=== PATIENT | female | born 1995 | race Caucasian/White ===

== ENCOUNTER 2016-10-30 15:08 | Emergency (ER) | payer OTHER, MEDICAID ==
[2016-10-30 16:05] VITALS: BP 125/76
--- NOTE | 2016-10-30 16:13 | ED ---
Ana Paula Bowers Emily, scribed for Leonel Maravilla MD on 10/30/16 at 1533 . Substance Abuse/Use - HPI Summary HPI Summary: This patient is a 20 year old F BIBA to [facility] with a chief complaint of heroin overdose this afternoon. Pt was found unresponsive to voice, but responsive to pain stimuli. Paramedics did not administer Narcan. Refuses blood draw and mental health evaluation. - History Of Current Complaint Chief Complaint: EDOverdose Stated Complaint: OVERDOSE Time Seen by Provider: 10/30/16 15:13 Hx Obtained From: Patient Ingestion History: Type/Name Of Drug - Heroin Overdose Characteristics: IV Timing Of Abuse: Binge Use Severity Initially: Moderate Severity Currently: Moderate - Allergies/Home Medications Allergies/Adverse Reactions: Allergies Allergy/AdvReac Type Severity Reaction Status Date / Time Amoxicillin [From Augmentin] Allergy Intermediate Hives Verified 01/18/16 18:07 Clavulanic Acid Allergy Intermediate Hives Verified 01/18/16 18:07 [From Augmentin] Penicillins [PCN] Allergy Intermediate Hives Verified 01/18/16 18:07 Phenazopyridine Allergy Intermediate Nausea And Verified 01/18/16 18:07 [From Pyridium] Vomiting Sulfa Antibiotics Allergy Intermediate Itching Verified 01/18/16 18:07 PMH/Surg Hx/FS Hx/Imm Hx Previously Healthy: No Endocrine/Hematology History: Denies: Hx Diabetes, Hx Thyroid Disease Cardiovascular History: Denies: Hx Hypertension Respiratory History: Denies: Hx Asthma, Hx Chronic Obstructive Pulmonary Disease (COPD) GI History: Denies: Hx Ulcer Neurological History: Denies: Hx Dementia Psychiatric History: Reports: Hx Depression, Hx Inpatient Treatment, Hx Community Mental Health Tx, Hx Suicide Attempt, Hx Substance Abuse - marijuana Denies: Hx Eating Disorder, Hx of Violent Episodes Against Others Infectious Disease History: No Infectious Disease History: Denies: Hx Clostridium Difficile, Hx Hepatitis, Hx Human Immunodeficiency Virus (HIV), Hx of Known/Suspected MRSA, Hx Shingles, Hx Tuberculosis, Hx Known/ Suspected VRE, Hx Known/Suspected VRSA, History Other Infectious Disease, Traveled Outside the [place] in Last 30 Days - Family History Known Family History: Negative: Renal Disease - Social History Occupation: Employed Full-time Lives: Alone Alcohol Use: Rare Substance Use Type: Reports: None, Heroin Substance Use Comment - Amount & Last Used: IVDU daily X2 months Smoking Status (MU): Former Smoker Type: Cigarettes Amount Used/How Often: 5 cigs per day Length of Time of Smoking/Using Tobacco: 2 months Have You Smoked in the Last Year: Yes Review of Systems Negative: Fever Neurological: Other - Heroin overdose All Other Systems Reviewed And Are Negative: Yes Physical Exam Triage Information Reviewed: Yes Vital Signs On Initial Exam: Initial Vitals Temp Pulse Resp BP Pulse Ox 98.5 F 92 19 152/95 98 10/30/16 15:09 10/30/16 15:10/30/16 15:09 10/30/16 15:10/30/16 15:09 Vital Signs Reviewed: Yes Appearance: Positive: Well-Appearing, No Pain Distress Skin: Positive: Warm, Skin Color Reflects Adequate Perfusion, Dry Head/Face: Positive: Normal Head/Face Inspection Eyes: Positive: EOMI, YASMEEN ENT: Positive: Normal ENT inspection Neck: Positive: Supple, Nontender Respiratory/Lung Sounds: Positive: Clear to Auscultation, Breath Sounds Present Cardiovascular: Positive: Tachycardia - Mild Abdomen Description: Positive: Nontender, Soft Bowel Sounds: Positive: Present Musculoskeletal: Positive: Normal, Strength/ROM Intact Neurological: Positive: Normal, Sensory/Motor Intact, Alert, Oriented to Person Place, Time Psychiatric: Positive: Anxious - Slightly Diagnostics - Vital Signs Vital Signs Temp Pulse Resp BP Pulse Ox 10/30/16 15:09 98.5 F 92 19 152/95 98 - Laboratory Lab Statement: Any lab studies that have been ordered have been reviewed, and results considered in the medical decision making process. Course/Dx - Course Course Of Treatment: PATIENT AWAKE AND ALERT IN ED. AMBULATED IN ED. WHEN ASKED IF SHE WANTED BLOOD WORK OR A PSYCHIATRIC EVALUATION, PATIENT DECLINED. PATIENT'S PARENTS CAME AND TOOK THE PATIENT HOME. - Diagnoses Provider Diagnoses: Accidental heroin overdose Discharge - Discharge Plan Condition: Stable Disposition: HOME Patient Education Materials: Narcotic Abuse (ED) Referrals: [facility] [Outside] [facility] [Outside] [facility] [Outside] Non Staff,Doctor [Primary Care Provider] - Additional Instructions: FOLLOW UP WITH YOUR DOCTOR. RETURN TO THE EMERGENCY DEPARTMENT FOR ANY WORSENING OF YOUR CONDITION OR QUESTIONS OR CONCERNS. The documentation as recorded by the Ana Paula szymanski Emily accurately reflects the service I personally performed and the decisions made by , Leonel Maravilla MD.
== END 2016-10-30 16:08 | disposition home or self-care (01) ==
LOC: ED 15:08
DX: T40.1X1A Poisoning by heroin, accidental (unintentional), initial encounter (principal); Y92.9 Unspecified place or not applicable; Z87.891 Personal history of nicotine dependence
CPT/HCPCS: 99282

== ENCOUNTER 2016-11-10 07:06 | Inpatient (IN) | payer OTHER, MEDICAID ==
[2016-11-10] MEDS ORDERED: Acetaminophen TAB* 325 MG PO PRN (12:52)
[2016-11-10] MEDS ORDERED: Senna TAB PO PRN (12:52)
[2016-11-10] MEDS ORDERED: hydrOXYzine HCL TAB* 25 MG PO PRN (13:02)
[2016-11-10] MEDS: oxyCODONE/Acetamin 5/325 MG* TAB PO PRN ×3 (13:24→21:43)
[2016-11-10] MEDS: Methocarbamol TAB* 500 MG PO PRN ×2 (13:25→21:41)
[2016-11-10] MEDS: Lithium Carbonate ER* 450 MG TAB.ER PO SCH (21:43)
[2016-11-10] MEDS: Docusate CAP* 100 MG PO SCH (21:43)
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
[2016-11-11] MEDS: oxyCODONE/Acetamin 5/325 MG* TAB PO PRN ×3 (02:38→12:59)
[2016-11-11] MEDS: Methocarbamol TAB* 500 MG PO PRN (02:41)
[2016-11-11] MEDS: Omeprazole CAP* 20 MG PO SCH (05:33)
[2016-11-11] MEDS: Venlafaxine EXT RELEASE CAP* 37.5 MG PO SCH (09:23)
[2016-11-11] MEDS: Docusate CAP* 100 MG PO SCH ×2 (09:23→21:42)
[2016-11-11] MEDS: Citalopram TAB* 20 MG PO SCH (09:23)
[2016-11-11] MEDS: Enoxaparin(*) 40 MG/0.4 ML SYR SUBCUT SCH (09:24)
[2016-11-11] MEDS: Ethinyl Estrad/Desogest 0.03/0.15 (NF) TAB PO SCH (09:24)
--- NOTE | 2016-11-11 16:27 | CONSULT ---
Consult Consult: Psychiatry came to evaluate the patient in consultation, however, I am informed that she is currently off the unit taking a fresh-air break outdoors with a visitor. We will return to meet with her tomorrow (11/12).
[2016-11-11] MEDS: Lithium Carbonate ER* 450 MG TAB.ER PO SCH (21:44)
[2016-11-12] MEDS: Omeprazole CAP* 20 MG PO SCH (07:29)
[2016-11-12] MEDS: oxyCODONE/Acetamin 5/325 MG* TAB PO PRN ×3 (07:30→18:53)
[2016-11-12 08:05] LABS: Hematocrit 35 % (35-47); Hemoglobin 11.3 g/dl (12.0-16.0); Mean Corpuscular HGB Conc 33 g/dl (31-36); Mean Corpuscular Hemoglobin 26 pg (27-31); Mean Corpuscular Volume 80 fL (80-97); Mean Platelet Volume 8 um3 (7.4-10.4); Red Blood Count 4.34 10^6/ul (4.0-5.4); Red Cell Distribution Width 16 % (10.5-15); White Blood Count 5.9 10^3/ul (3.5-10.8)
[2016-11-12 08:24] LABS: Albumin 3.9 g/dL (3.2-5.2); BUN/Creatinine Ratio 23.9 (8-20); Calcium 9.7 mg/dL (8.6-10.3); EGFR African American 144.3 (>60); EGFR Non-African American 112.2 (>60); Globulin 3.7 g/dL (2-4); Total Bilirubin 0.9 mg/dL (0.2-1.0); Total Protein 7.6 g/dL (6.4-8.9)
[2016-11-12] MEDS: Ethinyl Estrad/Desogest 0.03/0.15 (NF) TAB PO SCH (09:25)
[2016-11-12] MEDS: Citalopram TAB* 20 MG PO SCH (09:26)
[2016-11-12] MEDS: Venlafaxine EXT RELEASE CAP* 37.5 MG PO SCH (09:26)
[2016-11-12] MEDS: Docusate CAP* 100 MG PO SCH ×2 (09:26→19:52)
[2016-11-12] MEDS: Enoxaparin(*) 40 MG/0.4 ML SYR SUBCUT SCH (09:26)
--- NOTE | 2016-11-12 14:16 | PMRUTEAM ---
PMRU: Goals Current Status: Nursing: Current Status Skin Deviations [Bilateral Abrasion Ankle] Skin Deviations [Left Lateral Incision Knee] Skin Deviations [Left Hip] Incision Skin Deviation Description [ scabs that pt picked at, CHETAN Bilateral Ankle] Skin Deviation Description [ x3 Left Lateral Knee] Skin Deviation Description [ incision x2, sutures intact dressing changed d/t Left Hip] small amount of drainage Bladder Current Status continent Bowel Current Status continent Nutrition Current Status adequate Medication Current Status Supervision Physical Therapy: Current Status Bed Mobility Assistance Supervision Transfer Moblility Assistance contact guard Transfer/Bed Mobility Rolling Walker Recommended Devices Ambulation Assistance Contact guard 5 feet Ambulation Assistive Devices Rolling Walker,Straight Cane Occupational Therapy: Current Status Upper Body Dressing Supervision Lower Body Dressing Contact Guard Assist,Min Assist Bathing Min Assist Toileting Min Assist Toilet Transfer Contact Guard Assist,Min Assist Shower Transfer Contact Guard Assist Eating Independent Rec Therapy: Current Status Summary of Assessment and Pt. was open to conversation - very talkative and Clinical Impression engaged. Pt. very interested in recreation and leisure activities while on the unit. Pt. was tearful when talking about not being able to ride her horse anymore but was hopeful to again in the future. Treatment Goals Pt. will engage in leisure activities while on the unit. Treatment Plan Provide RT services and encourage involvement. Provide emotional support as needed. Social Work: Current Status Discharge Plan return home with continued therapy and family support Potential for Family Training pt's family is involved and supportive Anticipated Discharge Home Destination Discharge With continued P.T. and family support Goals: Physical Therapy: Initial Goals Bed Mobility Assistance Independent Transfer Mobility Assistance Independent Transfer/Bed Mobility Rolling Walker Recommended Devices Ambulation Independent Ambulation Recommended Devices Rolling Walker Ambulation Distance 150 Stairs Assistance Independent Stair Recommended Devices Two Rails Number of Stairs 10 Physical Therapy: Updated Goals Transfer/Bed Mobility Rolling Walker Recommended Devices Occupational Therapy: Initial Goals Goals to be Completed in (Days 3-7 ) Upper Body Bathing Routine Independent Lower Body Bathing Routine Modified Independent with Upper Body Dressing Routine Independent Lower Body Dressing Routine Modified Independent with Toilet Hygeine and Clothing Modified Independent with Management Routine Toilet Transfer Routine Modified Independent with Tub Transfer Routine Modified Independent with Functional Transfers for ADL Modified Independent with Grooming Routine Independent Feeding Routine Independent Nursing: Goals Bladder Goal continent Bowel Goal continent Nutrition Goal 100% of all meals Medication Goal Independent Social Work: Goals Discharge Plan return home with continued therapy and family support Potential for Family Training pt's family is involved and supportive Anticipated Discharge Home Destination Discharge With continued P.T. and family support Care Plan: Care Plan ADL's - Improve/Maintain Start: 11/10/16 16:16 Freq: QSHIFT Status: Active Target: Activity Type Activity Date Activity User E-Sign Co-Sign Detail Recorded Client Recorded Date Recorded By Document 11/11/16 15:33 [id number] 11/11/16 15:33 [id number] 11/11/16 15:33 PMRU Outcome: ADL's/ADL Transfers Orders/Interventions Occupational Therapy Evaluation & Treatment Communication Tool in Patient Room Device Yes Patient to receive OT 5x/wk for 60-120 Therex min/day Self Care Management Group Therapy UE/LE ADL's with Assist Yes: Cherelle ADL Transfers with Assist Yes: Cherelle Toileting: Transfers,Clothing Management Yes: Cherelle ,Hygeine w/Assist Light Kitchen/Laundry w/Assist No Progression Toward Outcome/Goals Progressing Outcome/Goals Met Pt with increased independence with bathing, able to utilize AE well for increased independence with LE dressing. Cardiovascular- Improve/Maintain Start: 11/10/16 18:42 Freq: QSHIFT Status: Active Target: Activity Type Activity Date Activity User E-Sign Co-Sign Detail Recorded Client Recorded Date Recorded By Document 11/12/16 11:06 [id number] 11/12/16 11:06 [id number] 11/12/16 11:06 PMRU Outcome: Cardiovascular Vital Signs q Shift for 48hrs Then BID Yes Daily Weight Ordered No Current Cardiovascular Outcome/Goal Maintain/ Achieve Baseline HR, BP , Perfusion Maintain/ Achieve Hemodynamic Stability Progression Toward Outcome/Goal Progressing Coping/Psych-Improve/Maintain Start: 11/10/16 18:42 Freq: QSHIFT Status: Active Target: Activity Type Activity Date Activity User E-Sign Co-Sign Detail Recorded Client Recorded Date Recorded By Document 11/12/16 11:06 [id number] 11/12/16 11:06 [id number] 11/12/16 11:06 PMRU Outcome: Coping/Psychosocial Coping Outcome/Goals Verbalization of Acceptance of Rehab Admit Verbalization of Sense of Control Over Health Status Utilization of Appropriate Problem Solving Techniques Willingness to Participate in Treatment Plan and Basic Needs Psychosocial Outcome/Goals Maintain/ Improve Emotional Health Demonstrates Knowledge of Healthy Coping Mechanisms Available Progression Toward Outcome/Goals - Progressing Coping Progression Toward Outcome/Goals - Not Progressing Psychosocial /GI-Improve/Maintain Start: 11/10/16 18:42 Freq: QSHIFT Status: Active Target: Activity Type Activity Date Activity User E-Sign Co-Sign Detail Recorded Client Recorded Date Recorded By Document 11/12/16 11:06 [id number] 11/12/16 11:06 [id number] 11/12/16 11:06 PMRU Outcome: Genitourinary/ Gastrointestinal Genitourinary- Outcome/Goals Maintain/ Achieve Urinary Continence Maintain/ Achieve Adequate Urinary Output Gastrointestinal-Outcome/Goals Maintain/ Achieve Bowel Regularity in Accordance with Pt's Baseline Prevent Constipation Laxatives as Ordered Progression Toward Outcome/Goals - Progressing Progression Toward Outcome/Goals - GI Not Progressing Outcome/Goals Met Comment took bowel meds this AM Medication Administration Start: 11/10/16 18:42 Freq: QSHIFT Status: Active Target: Activity Type Activity Date Activity User E-Sign Co-Sign Detail Recorded Client Recorded Date Recorded By Document 11/12/16 11:06 [id number] 11/12/16 11:06 [id number] 11/12/16 11:06 PMRU Outcome: Medication Administration Assess Patient Knowledge/Teach Med No Education for all Meds Outcome/Goals Patient Independent with Medication Administration at Home Progression Towards Outcome/Goals Progressing Is Patient Going Home on Lovenox? No Mobility- Improve/Maintain Start: 11/10/16 18:42 Freq: QSHIFT Status: Active Target: Activity Type Activity Date Activity User E-Sign Co-Sign Detail Recorded Client Recorded Date Recorded By Document 11/11/16 17:47 [id number] 11/11/16 17:48 [id number] 11/11/16 17:47 PMRU Outcome: Mobility Physical Therapy Evaluation and Yes Treatment Activity OOB with Assistance Yes WBAT Yes Device Yes Assistance Yes Patient to be seen 5x/wk for 60-120 min/ Therex day for: Mobility Training Gait Training W/C Mobility Balance Outcome/Goals Maintain/ Achieve Baseline Mobility Status Improve Mobility Status Demonstrates Proper Use of Assistive Devices Free from Complications of Immobility Bed Mobility Yes: independent Transfers Yes: independnet with rolling walker. Gait x ft Yes: independent with rolling walker 150' Up/Down Stairs Yes: independent up/ down 10 stairs with 2 rails. Pain/Comfort- Improve/Maintain Start: 11/10/16 18:42 Freq: QSHIFT Status: Active Target: Activity Type Activity Date Activity User E-Sign Co-Sign Detail Recorded Client Recorded Date Recorded By Document 11/12/16 11:06 [id number] 11/12/16 11:06 [id number] 11/12/16 11:06 PMRU Outcome: Pain/Comfort Outcome/Goals Demonstrates Knowledge and Use of Available Comfort Measures Achieves Acceptable Comfort/Pain Level as Determined by Patient/Condit Maintain Comfort Level Allowing Patient to Fully Participate in Rehab Progression Toward Outcome/Goals Progressing Outcome/Goals Met Comment Pain managed with PRN Percocet Medicine Note: Length of Stay: 4 days Anticipated Discharge Destination: Home Tentative Discharge Date: 11/16/16 Discharged to: home
[2016-11-12] MEDS: Methocarbamol TAB* 500 MG PO PRN (18:51)
[2016-11-12] MEDS: Lithium Carbonate ER* 450 MG TAB.ER PO SCH (21:07)
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
[2016-11-13] MEDS: oxyCODONE/Acetamin 5/325 MG* TAB PO PRN ×4 (03:29→18:25)
[2016-11-13] MEDS: Methocarbamol TAB* 500 MG PO PRN ×3 (03:57→17:50)
[2016-11-13] MEDS: Omeprazole CAP* 20 MG PO SCH (07:31)
[2016-11-13] MEDS: Citalopram TAB* 20 MG PO SCH (08:39)
[2016-11-13] MEDS: Lithium Carbonate ER* 450 MG TAB.ER PO SCH ×2 (08:39→21:28)
[2016-11-13] MEDS: Venlafaxine EXT RELEASE CAP* 37.5 MG PO SCH (08:40)
[2016-11-13] MEDS: Enoxaparin(*) 40 MG/0.4 ML SYR SUBCUT SCH (08:40)
[2016-11-13] MEDS: Docusate CAP* 100 MG PO SCH ×2 (08:43→21:29)
[2016-11-13] MEDS: Ethinyl Estrad/Desogest 0.03/0.15 (NF) TAB PO SCH (08:43)
[2016-11-14] MEDS: oxyCODONE/Acetamin 5/325 MG* TAB PO PRN ×4 (00:22→18:23)
[2016-11-14] MEDS: Methocarbamol TAB* 500 MG PO PRN ×3 (00:23→14:35)
[2016-11-14] MEDS: Omeprazole CAP* 20 MG PO SCH (06:41)
[2016-11-14] MEDS: Lithium Carbonate ER* 450 MG TAB.ER PO SCH ×2 (09:51→20:32)
[2016-11-14] MEDS: Docusate CAP* 100 MG PO SCH ×2 (09:51→20:32)
[2016-11-14] MEDS: Venlafaxine EXT RELEASE CAP* 37.5 MG PO SCH (09:51)
[2016-11-14] MEDS: Enoxaparin(*) 40 MG/0.4 ML SYR SUBCUT SCH (09:51)
[2016-11-14] MEDS: Citalopram TAB* 20 MG PO SCH (09:51)
[2016-11-15] MEDS: oxyCODONE/Acetamin 5/325 MG* TAB PO PRN ×2 (02:25→07:25)
[2016-11-15] MEDS: Methocarbamol TAB* 500 MG PO PRN (02:26)
[2016-11-15 06:56] VITALS: BP 101/68
[2016-11-15] MEDS: Omeprazole CAP* 20 MG PO SCH (07:12)
[2016-11-15] MEDS: Docusate CAP* 100 MG PO SCH (07:25)
[2016-11-15] MEDS: Citalopram TAB* 20 MG PO SCH (07:25)
[2016-11-15] MEDS: Venlafaxine EXT RELEASE CAP* 37.5 MG PO SCH (07:25)
[2016-11-15] MEDS: Lithium Carbonate ER* 450 MG TAB.ER PO SCH (07:26)
[2016-11-15] MEDS: Enoxaparin(*) 40 MG/0.4 ML SYR SUBCUT SCH (07:27)
--- NOTE | 2016-11-17 00:38 | DS ---
CC: Dr. Shakeel Thompson; Dusty Polo MD * DISCHARGE SUMMARY: DATE OF ADMISSION: 11/10/16 DATE OF DISCHARGE: 11/15/16 DISCHARGE DIAGNOSES: 1. Left femur fracture. 2. History of heroin addiction. 3. Bipolar disease. 4. Closed head injury. HISTORY OF PRESENT ILLNESS AND HOSPITAL COURSE: For complete history of the events leading up to her rehab stay, please see the history and physical dictated by me on 11/10/16. While on the rehab unit, the patient was medically stable. Her pain was adequately controlled with one Percocet every 4 hours. The patient's wound appeared clean and dry. She had really no other complaints. She worked with physical therapy and occupational therapy while on the rehab unit. She made good gains with both disciplines. With physical therapy at the time of admission, the patient required contact guard for transfer. She could ambulate 40 feet with contact guard. With occupational therapy at the time of admission, the patient required max assist for lower body dressing, supervision for upper body dressing, min assist for bathing, min assist for toileting, contact guard for toilet transfers. By the time of discharge, she was independent in all activities. The patient's discharge was originally scheduled for 11/16/16 and the patient requested that her discharge to be moved up until 11/15/16. Arrangements were made for the patient to be discharged on 11/15/16, at noon, however, roughly at 11:45, the patient eloped from the hospital. She did not sign her discharge paperwork and did not receive her discharge instructions. The person to notify was contacted about her belongings being left behind. The patient's medications had been sent into the pharmacy electronically prior to the patient's elopement. Of note, the patient had been seen by Psychiatry during her inpatient stay. In the psychiatrist opinion, the patient did not qualify for inpatient admission. DISCHARGE DIET: Regular. DISCHARGE MEDICATIONS: 1. Celexa 20 mg daily. 2. [place] carbonate 450 mg twice daily. 3. Robaxin 750 mg orally every 6 hours. 4. Effexor XR 37.5 mg daily. 5. Atarax 25 mg every 8 hours as needed. 6. Percocet 1 tablet every 4 hours as needed. She was given a prescription for 35 tablets. FOLLOWUP: The patient hoped to follow up with the [facility] for referral for Suboxone administration. She also has a followup appointment made with Moris Dumont, physician press assistant in Dr. Kenny's office at the [facility]. That appointment is 11/23/16 at 1:15 p.m. [id number]/[facility] #: [id number] ELI
== END 2016-11-15 12:00 | disposition left against medical advice (07) | DRG 561 ==
LOC: PMRU 10:13
PROVIDERS: ADMIT Physical Medicine & Rehabilitation; ATTEND Physical Medicine & Rehabilitation
PROC: F07Z5ZZ Bed Mobility Treatment (ICD-10-PCS; principal; 2016-11-10)
PROC: F07Z9ZZ Gait Training/Functional Ambulation Treatment (ICD-10-PCS; 2016-11-10)
PROC: F07Z8ZZ Transfer Training Treatment (ICD-10-PCS; 2016-11-10)
PROC: F08Z0ZZ Bathing/Showering Techniques Treatment (ICD-10-PCS; 2016-11-10)
PROC: F08Z1ZZ Dressing Techniques Treatment (ICD-10-PCS; 2016-11-10)
PROC: F08Z3ZZ Feeding/Eating Treatment (ICD-10-PCS; 2016-11-10)
DX: S72.8X2D Other fracture of left femur, subsequent encounter for closed fracture with routine healing (principal); F11.10 Opioid abuse, uncomplicated; V49.88XD Car occupant (driver) (passenger) injured in other specified transport accidents, subsequent encounter; F31.9 Bipolar disorder, unspecified; Z79.899 Other long term (current) drug therapy; S06.9X0D Unspecified intracranial injury without loss of consciousness, subsequent encounter; F17.210 Nicotine dependence, cigarettes, uncomplicated; F14.10 Cocaine abuse, uncomplicated; F39 Unspecified mood [affective] disorder; F60.2 Antisocial personality disorder; F43.10 Post-traumatic stress disorder, unspecified; F60.3 Borderline personality disorder; Z88.2 Allergy status to sulfonamides; Z88.0 Allergy status to penicillin; Z81.8 Family history of other mental and behavioral disorders; Z88.1 Allergy status to other antibiotic agents
CPT/HCPCS: 36415; 80053; 85025; A9270-GY; J1650

== ENCOUNTER 2017-03-26 15:33 | Emergency (ER) | payer OTHER, MEDICAID ==
[2017-03-26 16:30] LABS: ABS Basophils 0.1 10^3/ul (0-0.2); ABS Eosinophils 0 10^3/ul (0-0.6); ABS Lymphocytes 1.2 10^3/ul (1.0-4.8); ABS Monocytes 0.3 10^3/ul (0-0.8); ABS Neutrophils 4.5 10^3/ul (1.5-7.7); ABS Nucleated RBC 0 10^3/ul; Eosinophil % 0.5 % (0-6); Hematocrit 37 % (35-47); Hemoglobin 12.2 g/dl (12.0-16.0); Lymphocyte % 19.8 % (25-47); Mean Corpuscular HGB Conc 33 g/dl (31-36); Mean Corpuscular Hemoglobin 25 pg (27-31); Mean Corpuscular Volume 77 fL (80-97); Mean Platelet Volume 8 um3 (7.4-10.4); Nucleated Red Blood Cells % 0; Platelet Count 287 10^3/ul (150-450); Red Blood Count 4.88 10^6/ul (4.0-5.4); Red Cell Distribution Width 19 % (10.5-15); White Blood Count 6.1 10^3/ul (3.5-10.8)
[2017-03-26 16:45] LABS: EGFR Non-African American 102.3 (>60)
[2017-03-26 17:41] VITALS: BP 132/80
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
== END 2017-03-26 17:54 | disposition left against medical advice (07) ==
LOC: ED 15:33
DX: F11.20 Opioid dependence, uncomplicated (principal); R09.2 Respiratory arrest; R79.89 Other specified abnormal findings of blood chemistry; F17.210 Nicotine dependence, cigarettes, uncomplicated; Z88.3 Allergy status to other anti-infective agents; Z88.0 Allergy status to penicillin; Z88.2 Allergy status to sulfonamides
CPT/HCPCS: 36415; 80053; 80307; 80320; 84484; 84702; 85025; 93005; 99282; G0480

== ENCOUNTER 2018-08-05 05:39 | Emergency (ER) | payer OTHER ==
[2018-08-05 05:51] VITALS: BP 134/82
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
== END 2018-08-05 06:19 | disposition home or self-care (01) ==
LOC: ED 05:39
DX: F43.20 Adjustment disorder, unspecified (principal); F17.210 Nicotine dependence, cigarettes, uncomplicated; Z88.2 Allergy status to sulfonamides; Z88.0 Allergy status to penicillin
CPT/HCPCS: 99282

== ENCOUNTER 2018-12-21 14:09 | Inpatient (IN) | payer OTHER ==
[2018-12-21] MEDS ORDERED: Magnesium Sulf 4 GM/100 ML IV* 4,000 MG/100 ML BAG IVPB ONE (14:31)
[2018-12-21] MEDS ORDERED: NIFEdipine CAP* 10 MG ONE ×2 (14:41→15:08)
[2018-12-21] MEDS ORDERED: Lidocaine 1% MPF ** 5 ML VIAL ONE ×2 (14:48→18:16)
[2018-12-21] MEDS ORDERED: Magnesium Sulfate OB PREMIX* 40 GM/1,000 ML BAG IVPB SCH (15:00)
[2018-12-21] MEDS ORDERED: Labetalol IV* 5 MG/ML 20 ML VIAL IV PUSH ONE (15:03)
[2018-12-21 15:37] LABS: Hematocrit 35 % (35-47); Hemoglobin 11.1 g/dL (12.0-16.0); Mean Corpuscular HGB Conc 32 g/dL (31-36); Mean Corpuscular Hemoglobin 22 pg (27-31); Mean Corpuscular Volume 70 fL (80-97); Mean Platelet Volume 8.7 fL (7.4-10.4); Platelet Count 271 10^3/uL (150-450); Red Cell Distribution Width 16 % (10-15); White Blood Count 6.1 10^3/uL (3.5-10.8)
[2018-12-21 15:46] LABS: Activated Partial Thrombo Time 33.4 seconds (26.0-38.0); INR 0.83 (0.82-1.09)
[2018-12-21 15:53] LABS: Albumin 2.7 g/dL (3.2-5.2); Albumin/Globulin Ratio 0.7 (1-3); BUN/Creatinine Ratio 15.3 (8-20); Calcium 8.7 mg/dL (8.6-10.3); EGFR African American 85.1 (>60); EGFR Non-African American 70.3 (>60); Globulin 3.9 g/dL (2-4); Potassium 4.4 mmol/L (3.5-5.0); Total Bilirubin 0.3 mg/dL (0.2-1.0); Total Protein 6.6 g/dL (6.4-8.9); Uric Acid 6.7 mg/dL (2.3-6.6)
[2018-12-21 16:04] LABS: ABS Lymphocytes 1.3 10^3/ul (1.0-4.8); ABS Monocytes 0.3 10^3/ul (0-0.8); ABS Neutrophils 4.5 10^3/ul (1.5-7.7); Eosinophil % 0.4 %; Lymphocyte % 20.8 %; Nucleated Red Blood Cells % 0.2
[2018-12-21] MEDS ORDERED: Buffered Lidocaine 1% SYRIN* 1 ML/SYRINGE INTRADERM ONE (16:29)
[2018-12-21] MEDS ORDERED: Lactated Ringers 1000 ML Bag* 1,000 ML IV ONE (16:29)
[2018-12-21] MEDS ORDERED: Vancomycin 1500 MG IV - x ONCE IVPB ONE ×2 (16:30)
[2018-12-21] MEDS ORDERED: Lactated Ringers 1000 ML Bag* 1,000 ML IV SCH ×2 (17:00→22:00)
[2018-12-21] MEDS ORDERED: Vancomycin per Pharmacy* NOTE FOLLOW UP SCH (17:00)
[2018-12-21] MEDS ORDERED: Sodium Citrate/Citric Acid* 15 ML UDC ONE (17:23)
--- NOTE | 2018-12-21 17:28 | HP ---
General Information - Reason for Visit PPROM, PreEclampsia at 36w0d, complicated by IUGR, large complex ovarian mass, polysubstance abuse - General Information Maternal Age: 23 Grav: 2 Para: 0 SAB: 1 IEA: 0 Estimated Due Date: 01/18/19 Determined By: LMP Gestational Age in Weeks/Days: 36w0d Maternal Blood Type and Rh: A Positive - Results this Serology/RPR Result: Non-Reactive Rubella Result: Non-Immune HBsAg Result: Negative HIV Result: Negative Past Medical History Pertinent Past Medical History: See Records - Polysusbstance abuse, IVD abuse, Hepatitis C, large complex ovarian mass Pertinent Past Surgical History: None Pertinent Family History: Non-Contributory - Antepartal Records Antepartal Records: Reviewed, Complicated by: - poor compliance, limited PNC, placentia previa --> resolved on USN today, large complex cystic ovarian mass, hepatitis c, polysubstance abuse, IVDU Review of Systems Constitutional: Uncomfortable CV Complaint: No Respiratory: Shortness of Breath: No Gastrointestinal: No Nausea/Vomiting, Normal Bowel Movement Genitourinary: Leaking Fluid, No Dysuria, No Bleeding Musculoskeletal: No Complaint, No Epigastric Pain Neurological: No Headache, No Visual Changes Movement: Normal Exam Allergies/Adverse Reactions: Allergies amoxicillin [From Augmentin] Allergy (Verified 11/13/18 10:37) Hives clavulanic acid [From Augmentin] Allergy (Verified 11/13/18 10:37) Hives Penicillins Allergy (Verified 11/13/18 10:37) Hives phenazopyridine [From Pyridium] Allergy (Verified 11/13/18 10:37) Hives Sulfa (Sulfonamide Antibiotics) Allergy (Verified 11/13/18 10:37) Hives Vital Signs 12/21/18 14:52 Temperature 99.6 F Pulse Rate 114 Respiratory 17 Rate Blood Pressure 166/112 (mmHg) O2 Sat by Pulse 98 Oximetry Lab Values - Entire Visit: Laboratory Tests 12/21/18 12/21/18 12/21/18 15:00 15:14 15:14 WBC RBC Hgb Hct MCV MCH MCHC RDW Plt Count MPV Neut % (Auto) Lymph % (Auto) Grant % (Auto) Eos % (Auto) Baso % (Auto) Absolute Neuts (auto) Absolute Lymphs (auto) Absolute Monos (auto) Absolute Eos (auto) Absolute Basos (auto) Absolute Nucleated RBC Nucleated RBC % INR (Anticoag Therapy) APTT Sodium 136 Potassium 4.4 Chloride 104 Carbon Dioxide 27 Anion Gap 5 BUN 15 Creatinine 0.98 H Est GFR ( Amer) 85.1 Est GFR (Non-Af Amer) 70.3 BUN/Creatinine Ratio 15.3 Glucose 83 Uric Acid 6.7 H Calcium 8.7 Total Bilirubin 0.30 AST 16 ALT 11 Alkaline Phosphatase 123 H Total Protein 6.6 Albumin 2.7 L Globulin 3.9 Albumin/Globulin Ratio 0.7 L Vag Amniotic Fld Detect Positive Blood Type A Positive Antibody Screen Negative 12/21/18 12/21/18 15:14 15:14 WBC 6.1 RBC 5.00 H Hgb 11.1 L Hct 35 MCV 70 L MCH 22 L MCHC 32 RDW 16 H Plt Count 271 MPV 8.7 Neut % (Auto) 72.8 Lymph % (Auto) 20.8 Grant % (Auto) 5.4 Eos % (Auto) 0.4 Baso % (Auto) 0.6 Absolute Neuts (auto) 4.5 Absolute Lymphs (auto) 1.3 Absolute Monos (auto) 0.3 Absolute Eos (auto) 0.0 Absolute Basos (auto) 0.0 Absolute Nucleated RBC 0.0 Nucleated RBC % 0.2 INR (Anticoag Therapy) 0.83 APTT 33.4 Sodium Potassium Chloride Carbon Dioxide Anion Gap BUN Creatinine Est GFR ( Amer) Est GFR (Non-Af Amer) BUN/Creatinine Ratio Glucose Uric Acid Calcium Total Bilirubin AST ALT Alkaline Phosphatase Total Protein Albumin Globulin Albumin/Globulin Ratio Vag Amniotic Fld Detect Blood Type Antibody Screen - Measurements Height: 5 ft 6 in Pre- Weight: 165 lb - Exam Breast: Breast Exam Deferred CVA: No CVA Tenderness Extremities: No Edema Heart: Normal Rhythm/Heart Sounds HEENT: No Significant Findings Lungs: Clear Bilaterally Rectal: Rectal Exam Deferred Reflexes: DTR 2+ - negative clonus Thyroid: No Thyromegaly - Abdominal Exam Abdomen Exam: Non-Tender - Ultrasound/Biophysical Profile Ultrasound Status: Radiology Department Full Exam - EFW at ~ 4lb 5oz Fundal Placenta, no placenta previa Oligohydramnios Large Pelvic mass measuring >25cm Targeted Exam Findings Cervical Exam: Fingertip Effacement: 60% Station: 0 Presenting Part: Vertex Membrane Status: SROM - PPROM Amniotic Fluid Evaluation: Positive ROM Plus Bleeding/Discharge: None EFM Findings - External Monitor Findings Baseline Heart Rate: 150 External Monitor Findings: Baseline Stable, Variability Minimal, Variable or Late Deceleration Pattern Present Contractions: Irregular Assessment/Plan - Assessment 23 y/o at 36w0d with PPROM, PreEclampsia with severe features in the form of new onset persistent severe range BP's, remote from delivery, fetus unable to tolerate IOL; complicated by placenta previa at ~20 weeks, resolved on today's usn, Hepatitis C, IVDU, polysubstance abuse. - Obstetrical Risk Factors Obstetrical Risk Factors: GBS Unknown, , PreEclampsia with Severe Features, Substance Abuse, Psychosocial Issues, IUGR Risk Factors Comment: Limited care - Plan Plan: Expedite C/S Delivery Plan Comment: BP's stablized wiht PO nifedipine while obtaining IV access Magnesium Sulfate for seizure ppx Vancomycin for GBS ppx Proceed to OR for delivery secondary to NRFHT remote from delivery DO MONA Hoang
[2018-12-21] MEDS ORDERED: Morphine PF AMP (0.5MG/ML)* 5 MG/10 ML AMP ONE (17:30)
[2018-12-21] MEDS ORDERED: OXYTOCIN* 10 UNITS/ML 1 ML VIAL ONE (17:33)
[2018-12-21] MEDS ORDERED: Ondansetron INJ* 2 MG/ML VIAL ONE (17:33)
[2018-12-21] MEDS ORDERED: Ketorolac INJ* 30 MG/ML 1 ML VIAL ONE (17:33)
[2018-12-21 18:09] LABS: Urine Benzodiazepine Screen None Detected (None Detect); Urine Opiates Screen None Detected (None Detect)
[2018-12-21] MEDS ORDERED: Midazolam* 1 MG/ML 2 ML VIAL (2 MG) ONE ×2 (18:21→18:34)
[2018-12-21] MEDS ORDERED: Phenylephrine 40 MCG/ML SYRINGE ONE (18:33)
[2018-12-21] MEDS ORDERED: Propofol* 10 MG/ML 20 ML BTL ONE (18:33)
[2018-12-21] MEDS ORDERED: HYDROmorphone INJ1* 1 MG/ML SYRINGE IV PRN (18:50)
[2018-12-21] MEDS ORDERED: Acetaminophen IV 1GM/100ML * 1,000 MG/100 ML VIAL IVPB ONE (18:50)
[2018-12-21] MEDS ORDERED: DiMENhydriNATE IV* 50 MG/ML VIAL IV PUSH PRN (18:50)
[2018-12-21] MEDS ORDERED: HYDROmorphone INJ* 0.5 MG/0.5 ML SYRINGE IV PRN (19:00)
--- NOTE | 2018-12-21 20:32 | OP ---
Operative Report - Blank - Operative Report Date of Operation: 12/21/18 Note: Pre-Operative Diagnosis: PPROM at 36w0d with SIUP in the context of PreEclampsia with severe features, suspected IUGR, remote from delivery with non -reassuring heart tracing. complicated by large left adnexal complicated mass, limited care, hepatitis C, polysubstance abuse, IV drug use and placenta previa on 2nd trimester USN, resolved on USN today. Post-Operative Diagnosis: same, delivered Procedure: primary low transverse section via Pfannensteil incision Surgeon: Freddy Painting, [place]: Behzad Parks MD Anesthesia: spinal EBL: 600mL IVF: 1800mL UOP: 100mg Specimen: placenta sent to pathology Complications: none Findings: Female in vertex position, 9/9; weight 2001 grams (4lbs and 7ounces), normal uterus, normal right fallopian tube and ovary, left adnexa with large cystic mass, unable to visualize left ovary Indication and Consent: Patient presented to labor and delivery with persistent severe range blood pressures. Found to be PPROM'd. Presentation consistent with PreEclampsia with severe features. Telephone consult placed to [facility] to review appropriateness for transfer and recommended management given patient's large pelvic mass. Patient presentation and clinical history reviewed with perinatologist Pablito Cantrell and Chase, both of whom recommended delivery and that in the event that was required their recommendation was to leave the large pelvic mass in place and to not attempt resection at time of delivery. BP's were stabilized and patient started on Magnesium sulfate for seizure prophylaxis. heart tracing exhibited minimal variability with late decelerations. Given patient's presentation, remoteness from delivery and non-reassuring heart tracing section was recommended for well being. The patient understood that the risks of section include but are not limited to visceral or vascular injury, infection, blood loss and need for transfusion, prolonged hospitalization and re-operation. Patient stated understanding and desire to proceed. All questions were answered. Written consent was obtained. Procedure: Patient was taken to the operating room where spinal anesthesia was administered and found to be adequate. IV Vancomycin was being administered and continued. She was prepared and draped in the dorsal supine position with a leftward tilt. A pfannensteil skin incision was made the scalpel and carried down the the level of the fascia. The fascia was scored with scalpel the incised and extended laterally. The inferior aspect of the fascia was grasped with the Mary clamps and the underlying rectus and pyramidalis muscles dissected off sharply with the Spencer scissors. IN a similar fashion tonny superior aspect of the facia was elevated with the Kochers and the rectus muscle was dissected off. The rectus was in the midline down to the level of the pubic symphisis. The peritoneum was entered bluntly. The peritoneal incision was extended superiorly and inferiorly to the bladder reflection with good visualization of the bladder. The bladder blade was inserted and vesicouterine peritoneum identified. Intraabdominal surgey revealed scant, clear peritoneal fluid and the thinned out lower uterine segment. The vesicouterine peritoneum was opened with scissors and the bladder flap was developed. The bladder blade was repositioned to keep the bladder out of the operative field. The lower uterine segment was incised with a scalpel. The amniotic sac was rupture with an allis clamp and clear fluid noted. The uterine incision was extended bluntly with cephalocaudad traction. The fetus was in cephalic presentation. The head was elevated out of the pelvis. Gentle fundal pressure was applied that the delivered with no difficulty. Mouth and nose were suctioned with a bulb. The cord was clamped and cut and the handed off to the supervisor coal handling. IV oxytocin was initiated to facilitate uterine contractions. The placenta was delivered intact with manual massage of the fundus. The uterus was then exteriorized The inside of the uterus gently wiped with a lap sponge to assure complete removal of placental membranes. The uterine incision was closed with 0-Vicryl in a running locked fashion. An imbricating suture was applied also with O-vicryl. The ovaries and tubes were examined. The right fallopian tube and ovary were found to be normal. The left adnexa exhibited a large pelvic mass, likely > 25cm, consistent with ultrasound. The left ovary could not be separately visualized. The uterus right fallopian tube and right ovary were then returned to the abdominal cavity. The abdominal cavity was irrigated and blood clots and fluid wiped out with most laparotomy sponges. The uterine incision was reinspected and good hemostasis was noted. Peritoneum was closed with 3-0 vicryl suture in a continuous running fashion. The fascial layer was closed with O-vicryl in a continuous running fashion. The skin was closed wiht 4-0 monocryl in a subcuticular fashion. The patient tolerated the procedure well. All the counts were correct times two. The patient was taken to the recovery room in a stable condition. DO MONA Hoang
--- NOTE | 2018-12-21 21:23 | PN ---
Progress Note - Progress Note Date of Service: 12/21/18 Note: Pt now s/p pLTCS for PPROM, PreE w/ severe features, remote from delivery, NRFHT. Doing well post operatively. Pain appropriately controlled. UOP adequate. Denies BARKLEY, changes in vision, RUQ pain, fever, chills, n/v, cp, sob. AVSS, afebrile, hemodynamically stable. Last BP 141/92 CV: RRR Pulm: CTABL Abd: soft, nd, nttp Ext: warm, nttp, trace edema, reflexes 2+ in BL LE, negative clonus UOP: ~100cc/hr A/P: 23 y/o POD#0 s/p PLTCS for NRFHT, remote from delivery in the context of PPROM and PreE with severe features, complicated by large pelvic mass, polysubstance abuse, IVDU, hepatitis C, limited care: - PreE w/ severe features - persistently elevated BP's on admission, resolved with PO Nifedipine. On Magnesium sulfate for seizure ppx. Laboratory analysis significant for proteinuria, Creatinine of 0.98 and Uric Acid of 6.7. Plts and AST/ALT were WNL. Continue Magnesium sulfate at this time. BP's stable in normotensive to mild range. Pt asymptomatic. Continue q 2 hour magnesium sulfate checks and to monitor UOP closely. - Polysubstance Abuse/IVDU - patient reports using Methamphetamine IV q 3-4 days throughout the and suboxone intermittently. Reports that she is prescribed suboxone 8mg TID, but that she does not take it consistently and often goes days at a time without taking any. She reports that she last took suboxone partial of an 8mg dose this morning. Her Qtox is positive for amphetamines. SW and Psychiatry consults pending. Will give Narcotic pain medications if indicated overnight for pain control. Otherwise will attempt to control with IV Tylenol/Toradol. - Hepatitis C - pt states she is s/p treatment. Long standing Hx of IVDU. Will repeat Hepatitis C panel, HIV and RPR. - Large Left Adnexal Mass - pt to follow up with Gynecologic Oncology at discharge. Mass left in situ per [facility] recommendations. - GBS Unknown - received IV Vancomycin intrapartum - RH+ - Rubella Equivocal, will offer MMR DO MONA Hoang
[2018-12-21] MEDS ORDERED: Glycerin ADULT SUPP PR PRN (21:25)
[2018-12-21] MEDS ORDERED: oxyCODONE/Acetamin 5/325 MG* TAB PO PRN (21:25)
[2018-12-21] MEDS ORDERED: Zolpidem TAB* 5 MG PO PRN (21:25)
[2018-12-21] MEDS ORDERED: Dibucaine 1% 28.35 GM TUBE PR PRN (21:25)
[2018-12-21] MEDS ORDERED: Witch Hazel PAD* JAR TOPICAL PRN (21:25)
[2018-12-21] MEDS: oxyCODONE/Acetamin 5/325 MG* TAB PO PRN (23:08)
[2018-12-22] MEDS: Ketorolac INJ* 30 MG/ML 1 ML VIAL IV SCH ×3 (01:36→15:25)
--- NOTE | 2018-12-22 03:33 | PN ---
Progress Note - Progress Note Date of Service: 12/22/18 Note: BP's stable in normotensive to mild range. UOP adequate. Normoreflexive. No clonus. Asymptomatic. Pt resting. Pain adequately controlled. Labs in AM. Continue Magnesium sulfate for seizure prophylaxis. Plan to DC at 24 hours post . Freddy Malcolmn, DO DUNN
[2018-12-22] MEDS ORDERED: Lidocaine 0.5%* 50 ML SDV ONE (08:08)
[2018-12-22] MEDS: Docusate CAP* 100 MG PO SCH ×3 (09:00→21:05)
[2018-12-22] MEDS ORDERED: Measles, Mumps,Rubella VACC* 0.5 ML/VIAL SUBCUT ONE (09:00)
[2018-12-22] MEDS: Simethicone TAB* 80 MG TAB.CHEW PO SCH ×3 (09:02→21:05)
[2018-12-22 10:03] LABS: ABS Eosinophils 0.1 10^3/ul (0-0.6); ABS Lymphocytes 1.3 10^3/ul (1.0-4.8); ABS Monocytes 0.4 10^3/ul (0-0.8); ABS Neutrophils 6.9 10^3/ul (1.5-7.7); Eosinophil % 0.6 %; Hematocrit 27 % (35-47); Hemoglobin 8.3 g/dL (12.0-16.0); Lymphocyte % 14.4 %; Mean Corpuscular HGB Conc 32 g/dL (31-36); Mean Corpuscular Hemoglobin 22 pg (27-31); Mean Corpuscular Volume 71 fL (80-97); Mean Platelet Volume 8.9 fL (7.4-10.4); Platelet Count 273 10^3/uL (150-450); Red Blood Count 3.73 10^6 /uL (3.70-4.87); Red Cell Distribution Width 16 % (10-15); White Blood Count 8.7 10^3/uL (3.5-10.8)
[2018-12-22 10:33] LABS: Albumin 2.3 g/dL (3.2-5.2); Albumin/Globulin Ratio 0.9 (1-3); BUN/Creatinine Ratio 14.3 (8-20); Calcium 7.7 mg/dL (8.6-10.3); EGFR African American 72.9 (>60); EGFR Non-African American 60.3 (>60); Globulin 2.5 g/dL (2-4); Total Bilirubin 0.2 mg/dL (0.2-1.0); Total Protein 4.8 g/dL (6.4-8.9)
[2018-12-22 10:35] LABS: Potassium 5.1 mmol/L (3.5-5.0)
[2018-12-22] MEDS: oxyCODONE/Acetamin 5/325 MG* TAB PO PRN (10:40)
[2018-12-22 13:22] LABS: Chlamydia trachomatis NAA Negative (Negative); Neisseria gonorrhoeae (GC) NAA Negative (Negative)
[2018-12-22] MEDS ORDERED: Acetaminophen TAB* 325 MG ONE (13:59)
[2018-12-22] MEDS ORDERED: oxyCODONE TAB* 5 MG TAB PO PRN ×2 (14:00→14:01)
[2018-12-22] MEDS: Acetaminophen TAB* 325 MG PO PRN (14:01)
[2018-12-22] MEDS: Benzocaine (DENTAL) 10%* TOP.GEL TOPICAL PRN (14:05)
[2018-12-22] MEDS: Nicotine PATCH 21 MG/24 HR* PATCH TRANSDERM SCH (15:21)
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
[2018-12-22] MEDS ORDERED: Nicotine Patch Removal NOTE PATCH OFF SCH (21:00)
[2018-12-22] MEDS ORDERED: Buprenorp/Nalox 8-2 MG SL TAB PO SCH (21:00)
[2018-12-22] MEDS: Ferrous Gluconate TAB* 324 MG TAB PO SCH (21:04)
[2018-12-22] MEDS ORDERED: Ondansetron INJ* 2 MG/ML VIAL IV PRN (23:08)
[2018-12-23 07:47] VITALS: BP 141/84
[2018-12-23] MEDS: Acetaminophen TAB* 325 MG PO PRN ×2 (08:51→12:49)
[2018-12-23] MEDS: Simethicone TAB* 80 MG TAB.CHEW PO SCH ×2 (08:52→12:50)
[2018-12-23] MEDS: Ferrous Gluconate TAB* 324 MG TAB PO SCH (08:52)
[2018-12-23] MEDS: Docusate CAP* 100 MG PO SCH ×2 (08:52→14:40)
[2018-12-23] MEDS: Nicotine PATCH 21 MG/24 HR* PATCH TRANSDERM SCH (09:05)
[2018-12-23] MEDS ORDERED: Buprenorp/Nalox 2-0.5 MG SL TAB PO SCH ×2 (11:00)
--- NOTE | 2018-12-23 12:49 | CONSULT ---
Identification - Patient Identification Reason for Psychiatric Consultation: Incapacitating Symptoms, Other - Nicitin withdrawals -: Patient is a 23 year old, F admitted on 12/21/18. - MHU Identification Employment Status: Unemployed Hx Psychiatric Hospitalization: Yes Arrived to Hospital Via: Ambulatory History - Objective HPI: Received a call from this AM regarding Beatriz requesting to go out to smoke but due to hospital policy and her clinical condition it was not possible. She was offered Suboxone 8/2 mg as per consult recommendation and she declined. We decided to offer her 1/2 the dose instead, she took told me that that was helpful. However keep insisting to go out to smoke as she was told that [facility] pharmacy doesn't carry inhalers or gums. RN available in the room will find out the facts and will try to obtain help for the patient PASCALE. Otherwise she is willing to stay as long as her medical/surgical team wants her to stay for herself and her baby. There were no evidence of any psychiatric distress or dangerousness (SI or HI or Feticide.) Exam Appearance: Well Developed/Nourished, Healthy Appearing Hygiene: Normal Grooming: Well Kept Psychomotor Activities: Normal Exhibits Abnormal Movement: No Attitude and Relatedness: Well Related Eye Contact: Good - Speech Quality: Unpressured Latencies: Normal Quantity: Appropriate Patient's Decription of Mood: "Anxious" Observed Affect: Non-labile Affect Consistent with: Dysphoria Patient's Thought Process: Coherent, Goal Directed Thought Content: No Passive Wish, No Suicidal Planning, No Homicidal Ideation, No Paranoid Ideation Experiencing Hallucinations: No, Sensorium is Clear Type of Hallucinations: Visual: No, Auditory: No, Command: No Level of Consciousness: Alert Orientation: Yes Intact, Yes Orientated to Time, Yes Orientated to Place, Yes Orientated to Person Impulse Control: Intact Insight and Judgement: Good Impression - Impression Merits Inpatient Hospitalization: No Plan - Treatment Plan Continued Medication Management: Continue Outpt Medication Medications: Current Medications Acetaminophen (Tylenol Tab*) 650 mg PO Q4H PRN PRN Reason: PAIN - MILD Last Admin: 12/23/18 08:51 Dose: 650 mg Benzocaine (Orajel 10%*) 1 applic TOPICAL QID PRN PRN Reason: dental pain Last Admin: 12/22/18 14:05 Dose: 1 applic Buprenorphine/Naloxone (Suboxone 2-0.5 Mg Sl Tab*) 2 each PO Q6H [facility] Last Admin: 12/23/18 12:04 Dose: 2 each Dibucaine (Nupercainal 1% Oint*) 1 applic UT QID PRN PRN Reason: DISCOMFORT Docusate Sodium (Colace Cap*) 100 mg PO TID [facility] Last Admin: 12/23/18 08:52 Dose: 100 mg Ferrous Gluconate (Fergon Tab*) 324 mg PO BID [facility] Last Admin: 12/23/18 08:52 Dose: 324 mg Magnesium Sulfate (Magnesium Sulfate Ob Premix*) 40 gm in 1,000 mls @ 50 mls/ hr IVPB .PER RATE [facility] Last Admin: 12/21/18 15:45 Dose: 50 mls/hr Lactated Ringer's (Lactated Ringers 1000 Ml Bag*) 1,000 mls @ 0 mls/hr IV KVO [facility] Nicotine (Nicotine Patch 21 Mg/24 Hr*) 1 patch TRANSDERM DAILY [facility] Last Admin: 12/22/18 15:21 Dose: 1 patch Ondansetron HCl (Zofran Inj*) 4 mg IV Q6H PRN PRN Reason: NAUSEA Last Admin: 12/22/18 23:17 Dose: 4 mg Oxycodone HCl (Roxycodone Tab*) 5 mg PO Q4H PRN PRN Reason: PAIN - MODERATE Oxycodone HCl (Roxycodone Tab*) 10 mg PO Q4H PRN PRN Reason: PAIN - SEVERE Pharmacy Profile Note (Nicotine Patch Removal Note*) 1 note PATCH OFF [address] [facility] Simethicone (Mylicon Tab*) 80 mg PO [facility] Last Admin: 12/23/18 08:52 Dose: 80 mg [place] (Tucks*) 1 pad TOPICAL .PRN PRN PRN Reason: DISCOMFORT Zolpidem Tartrate (Ambien Tab*) 5 mg PO BEDTIME PRN PRN Reason: SLEEP - Discharge Plan Discharge Plan: Outpatient Follow Up Outpatient Program: [facility]
[2018-12-23] MEDS: Benzocaine (DENTAL) 10%* TOP.GEL TOPICAL PRN ×2 (12:50→16:08)
[2018-12-23] MEDS ORDERED: Nicotine Lozenge* mini 4 MG LOZNG.MINI MT PRN (13:35)
== END 2018-12-23 17:30 | DRG 787 ==
LOC: MCHOBOUT 14:09 → MCHOB 16:24
PROVIDERS: ADMIT Obstetrics & Gynecology; ATTEND Obstetrics & Gynecology
PROC: 10D00Z1 Extraction of Products of Conception, Low, Open Approach (ICD-10-PCS; principal; 2018-12-21 17:40)
DX: O14.14 Severe pre-eclampsia complicating childbirth (principal); O98.42 Viral hepatitis complicating childbirth; F17.213 Nicotine dependence, cigarettes, with withdrawal; O36.5990 Maternal care for other known or suspected poor fetal growth, unspecified trimester, not applicable or unspecified; O99.324 Drug use complicating childbirth; F19.10 Other psychoactive substance abuse, uncomplicated; O99.344 Other mental disorders complicating childbirth; F31.9 Bipolar disorder, unspecified; O76 Abnormality in fetal heart rate and rhythm complicating labor and delivery; O42.019 Preterm premature rupture of membranes, onset of labor within 24 hours of rupture, unspecified trimester; R19.00 Intra-abdominal and pelvic swelling, mass and lump, unspecified site; O99.334 Smoking (tobacco) complicating childbirth; Z3A.36 36 weeks gestation of pregnancy; Z37.0 Single live birth; F43.10 Post-traumatic stress disorder, unspecified; F60.3 Borderline personality disorder; F60.2 Antisocial personality disorder
CPT/HCPCS: 36415; 76815; 80053; 80307; 83735; 84112; 84156; 84550; 85025; 85610; 85730; 86850; 86900; 86901; 86922; 87070; 87077; 87086; 87186; 87491; 87522; 87591; 88307; 93005; A9270-GY; J1885; J2250; J2405; J2590; J2704; J3370; J3475

== ENCOUNTER 2019-01-03 12:56 | Emergency (ER) | payer OTHER ==
[2019-01-03 13:07] VITALS: BP 127/92
--- NOTE | 2019-01-03 13:08 | ED ---
Complex/Multi-Sys Presentation - HPI Summary HPI Summary: Patient is a 23 y/o F presenting to the ED via EMS and escorted by state police for a chief complaint of incision site re-check. Patient had a C- section performed on 12/21/18 at 36 week gestation due to a complication of preeclampsia. Per EMS, patient has a clean incision site with Steristrips that is non-bleeding. Patient admits a 2 cm cyst on her uterus. Patient denies abdominal pain, fever, or chills. She is pending incarceration and was sent to the ED by a chip mixing machine operator [place] [address]. Patient had a follow up appointment with Dr. Jaimes on 12/27/18, but did not keep her appointment. Patient admits a PMHx of substance abuse, anxiety, depression, and bipolar disorder. Patient has a history of methamphetamine and heroin use since 17 y/o, and admits to using methamphetamine on 12/31/18. Allergies noted. Medications reviewed. - History Of Current Complaint Time Seen by Provider: 01/03/19 13:03 Hx Obtained From: Patient, EMS Onset/Duration: Gradual Onset, Still Present Timing: Constant Severity Currently: Moderate Severity Initially: Moderate Associated Signs And Symptoms: Positive: Other - Negative chills; positive C- section incision site that is non-bleeding. Negative: Abdominal Pain, Fever Related History: Other - - Allergies/Home Medications Allergies/Adverse Reactions: Allergies Allergy/AdvReac Type Severity Reaction Status Date / Time amoxicillin [From Augmentin] Allergy Hives Verified 11/13/18 10:37 clavulanic acid Allergy Hives Verified 11/13/18 10:37 [From Augmentin] Penicillins Allergy Hives Verified 11/13/18 10:37 phenazopyridine Allergy Hives Verified 11/13/18 10:37 [From Pyridium] Sulfa (Sulfonamide Allergy Hives Verified 11/13/18 10:37 Antibiotics) PMH/Surg Hx/FS Hx/Imm Hx Previously Healthy: Yes Endocrine/Hematology History: Denies: Hx Diabetes, Hx Thyroid Disease Cardiovascular History: Denies: Hx Hypertension, Hx Pacemaker/ICD Respiratory History: Denies: Hx Asthma, Hx Chronic Obstructive Pulmonary Disease (COPD) GI History: Denies: Hx Ulcer History: Denies: Hx Dialysis, Hx Renal Disease Sensory History: Denies: Hx Contacts or Glasses, Hx Legally Blind, Hx Deafness, Hx Hearing Aid Opthamlomology History: Denies: Hx Contacts or Glasses, Hx Legally Blind EENT History: Denies: Hx Deafness Neurological History: Denies: Hx Dementia Psychiatric History: Reports: Hx Anxiety, Hx Depression, Hx Post Traumatic Stress Disorder, Hx Bipolar Disorder, Hx Substance Abuse Denies: Hx Attention Deficit Hyperactivity Disorder, Hx Eating Disorder, Hx Panic Disorder, Hx Inpatient Treatment, Hx Community Mental Health Tx, Hx Schizophrenia, Hx Suicide Attempt, Hx of Violent Episodes Against Others - Surgical History Surgical History: Yes Surgery Procedure, Year, and Place: Lt [facility] - W/ [facility] Infectious Disease History: Denies: Hx Clostridium Difficile, Hx Hepatitis, Hx Human Immunodeficiency Virus (HIV), Hx of Known/Suspected MRSA, Hx Shingles, Hx Tuberculosis, Hx Known/ Suspected VRE, Hx Known/Suspected VRSA, History Other Infectious Disease - Family History Known Family History: Negative: Renal Disease - Social History Occupation: Unemployed Lives: Alone Alcohol Use: None Alcohol Amount: denies use tonight Hx Substance Use: Yes Substance Use Type: Reports: Heroin, Marijuana, Other Substance Use Comment - Amount & Last Used: Amphetamines-unknown amount-last use 2 days ago; marijuan-daily Hx Tobacco Use: Yes Smoking Status (MU): Current Every Day Smoker Type: Cigarettes Amount Used/How Often: about a pack Length of Time of Smoking/Using Tobacco: over a year Have You Smoked in the Last Year: Yes Review of Systems Negative: Fever, Chills Negative: Abdominal Pain Positive: Other - Positive incision site that is clean and non- bleeding All Other Systems Reviewed And Are Negative: Yes Physical Exam - Summary Physical Exam Summary: Constitutional: Well-developed, Well-nourished, Alert. (-) Distressed Skin: Warm, Dry HENT: Normocephalic; Atraumatic Eyes: Conjunctiva normal Neck: Musculoskeletal ROM normal neck. (-) JVD, (-) Stridor, (-) Tracheal deviation Cardio: Rhythm regular, rate normal, Heart sounds normal; Intact distal pulses; Radial pulses are 2+ and symmetric. (-) Murmur Pulmonary/Chest wall: Effort normal. (-) Respiratory distress, (-) Wheezes, (-) Rales Abd: Soft, (-) tenderness, (-) Distension, (-) Guarding, (-) Rebound. Lower C- section incision dressed with Steristrips that is clean, dry, and intact, no erythema, no peeling or drainage of pus. Musculoskeletal: (-) Edema Lymph: (-) Cervical adenopathy Neuro: Alert, Oriented x3 Psych: Mood and affect Normal Triage Information Reviewed: Yes Vital Signs Reviewed: Yes Procedures - Sedation Patient Received Moderate/Deep Sedation with Procedure: No Complex Multi-Symp Course/Dx Course Of Treatment: Patient is here after being required by law to be checked out for her surgical incision. Patient had a 13 days ago. Patient's incision was clean dry and intact with no evidence of any abnormality. Patient was encouraged up with Dr. Jaimes. - Diagnoses Provider Diagnoses: Status post Discharge ED - Sign-Out/Discharge Documenting (check all that apply): Patient Departure - Discharge - Discharge Plan Condition: Stable Disposition: HOME Patient Education Materials: (DC) Referrals: Shakeel Thompson MD [Medical Doctor] - Behzad Jaimes MD [Medical Doctor] - Additional Instructions: FOLLOW UP WITH DR. JAIMES SOON POSSIBLE. RETURN TO THE EMERGENCY DEPARTMENT FOR ANY REDNESS OR PUS FROM THE INCISION SITE, FEVER, OR ANY ABNORMAL DISCHARGE FROM YOUR VAGINA. - Billing Disposition and Condition Condition: STABLE Disposition: Home - Attestation Statements Document Initiated by Jalen: Yes Documenting Scribe: Kamilah Whitlock Provider For Whom Jalen is Documenting (Include Credential): Samuel Steiner MD Scribe Attestation: Kamilah Bowers, scribed for Samuel Steiner MD on 01/03/19 at 1809. Scribe Documentation Reviewed: Yes Provider Attestation: The documentation as recorded by the Kamilah szymanski accurately reflects the service I personally performed and the decisions made by me, Samuel Steiner MD Status of Scribe Document: Viewed
== END 2019-01-03 13:32 | disposition home or self-care (01) ==
LOC: EEVIPCON 12:56 → ED 12:56
DX: Z39.2 Encounter for routine postpartum follow-up (principal); Z88.1 Allergy status to other antibiotic agents; Z88.0 Allergy status to penicillin; Z88.2 Allergy status to sulfonamides; F17.210 Nicotine dependence, cigarettes, uncomplicated
CPT/HCPCS: 99282

== ENCOUNTER 2020-01-07 14:15 | Observation (INO) ==
[2020-01-07] MEDS ORDERED: NS 0.9% 1000 ml BAG 1,000 ML IV ONE (15:17)
[2020-01-07 16:37] LABS: INR 1.13 (0.82-1.09)
[2020-01-07 16:38] LABS: ABS Basophils 0.1 10^3/ul (0-0.2); ABS Lymphocytes 1.2 10^3/ul (1.0-4.8); ABS Monocytes 0.3 10^3/ul (0-0.8); ABS Neutrophils 1.3 10^3/ul (1.5-7.7); Eosinophil % 1.6 %; Hematocrit 37 % (35-47); Hemoglobin 11.8 g/dL (12.0-16.0); Lymphocyte % 42.4 %; Mean Corpuscular HGB Conc 32 g/dL (31-36); Mean Corpuscular Hemoglobin 24 pg (27-31); Mean Corpuscular Volume 73 fL (80-97); Mean Platelet Volume 8.7 fL (7.4-10.4); Nucleated Red Blood Cells % 0.1; Platelet Count 189 10^3/uL (150-450); Red Blood Count 5.03 10^6 /uL (3.70-4.87); Red Cell Distribution Width 18 % (10-15); White Blood Count 2.9 10^3/uL (3.5-10.8)
[2020-01-07 16:48] LABS: AST 660 U/L (13-39); Albumin 3.5 g/dL (3.2-5.2); Albumin/Globulin Ratio 0.9 (1-3); Alkaline Phosphatase 279 U/L (34-104); Anion Gap 4 mmol/L (2-11); BUN/Creatinine Ratio 21.7 (8-20); Blood Urea Nitrogen 13 mg/dL (6-24); C Reactive Protein 3.15 mg/L (<8.01); CO2 Carbon Dioxide 27 mmol/L (22-32); Calcium 8.9 mg/dL (8.6-10.3); Chloride 103 mmol/L (101-111); EGFR African American 148.6 (>60); EGFR Non-African American 122.8 (>60); Globulin 3.7 g/dL (2-4); Glucose 102 mg/dL (70-100); Indirect Bilirubin 0.8 mg/dL (0.3-1.0); Potassium 3.9 mmol/L (3.5-5.0); Sodium 134 mmol/L (135-145); Total Protein 7.2 g/dL (6.4-8.9)
[2020-01-07 16:53] LABS: HCG Pregnancy < 0.60 mIU/mL
[2020-01-07 17:09] LABS: Influenza A Molecular Negative (Negative); Influenza B Molecular Negative (Negative)
[2020-01-07 17:37] LABS: Magnesium 1.9 mg/dL (1.9-2.7)
[2020-01-07 17:43] LABS: ALT 1422 U/L (7-52); Phosphorus 2.3 mg/dL (2.5-5.0)
[2020-01-07] MEDS ORDERED: Potassium Phosphate IV 5 MMOLE in NS 0.9% 250 ml 250 ML IVPB ONE (18:06)
[2020-01-07] MEDS ORDERED: Ondansetron 4 mg VIAL 2 MG/ML 2 ml VIAL IV PRN (18:42)
[2020-01-07] MEDS ORDERED: NS 0.9% 1000 ml BAG 1,000 ML IV SCH (18:45)
[2020-01-07 19:46] LABS: Vitamin D Total 25(OH) 40.6 ng/mL (20-50)
[2020-01-07 21:56] LABS: HIV 4th Generation Nonreactive (Nonreactive)
[2020-01-08 07:26] VITALS: BP 102/55
[2020-01-09 09:46] LABS: Hepatitis B Surface Antigen Nonreactive (Nonreactive)
[2020-01-09 11:40] LABS: Hepatitis C Antibody Reactive (Negative)
[2020-01-11 15:27] LABS: Hepatitis A Ab IgM Reactive (Negative); Hepatitis B Core IgM Nonreactive (Nonreactive)
== END 2020-01-08 10:15 | disposition left against medical advice (07) ==
LOC: MED 14:15 → ED 14:15 → MED 23:00
PROVIDERS: ADMIT Student in an Organized Health Care Education/Training Program; ATTEND Student in an Organized Health Care Education/Training Program